=== PATIENT | male | born 1945 | race Hispanic/Latino ===

== ENCOUNTER 2018-05-08 07:50 | Inpatient (IN) | payer MEDICARE ==
--- NOTE | 2018-05-05 14:30 | Diagnostic Imaging Report ---
EXAM: XR CHEST 2 VIEWS DATE: 05/05/2018 1:56 PM INDICATION: Preoperative. Renal mass. COMPARISON: None FINDINGS: Lines and Tubes: None Heart and Mediastinum: No acute cardiomediastinal findings. Lungs and Pleura: Nodular densities overlie the right midlung. Bones and Soft Tissues: No acute findings. IMPRESSION: 1. Nodular densities right midlung. Given history of renal mass, dedicated CT chest recommended. Signed by: Dr. Jaguar Lopez MD on 05/05/2018 2:27 PM
[2018-05-07 15:51] LABS: BASOPHILS % 0.2 % (0.0-1.0); EOSINOPHILS # (AUTO) 0.1 (0.0-0.4); EOSINOPHILS % 1.3 % (0.0-6.0); HEMATOCRIT 37.6 % (38.2-49.6); HEMOGLOBIN 12.6 g/dL (14.0-18.0); LYMPHOCYTES # (AUTO) 0.8 (1.0-3.2); LYMPHOCYTES % 14.2 % (18.0-39.1); MEAN CORPUSCULAR HEMOGLOBIN 27.1 pg (28-32); MEAN CORPUSCULAR HGB CONC 33.5 g/dL (31-35); MEAN CORPUSCULAR VOLUME 80.9 fL (81-99); MONOCYTES # (AUTO) 0.4 (0.2-0.8); MONOCYTES % 8.1 % (4.4-11.3); NEUTROPHILS # (AUTO) 4.1 (2.1-6.9); PLATELET COUNT 246 x10e3/uL (140-360); RED BLOOD COUNT 4.65 x10e6/uL (4.3-5.7); RED CELL DISTRIBUTION WIDTH 20.8 % (11.7-14.4)
[2018-05-07 16:11] LABS: ANION GAP 13.7 mmol/L (8-16); BLOOD UREA NITROGEN 18 mg/dL (7-26); BUN/CREATININE RATIO 21 (6-25); CALCIUM 9.3 mg/dL (8.4-10.2); CARBON DIOXIDE 27 mmol/L (22-29); CHLORIDE 97 mmol/L (98-107); CREATININE, SERUM 0.84 mg/dL (0.72-1.25); EST GLOMERULAR FILTRATION RATE > 60 ML/MIN (60-); GLUCOSE 331 mg/dL (74-118); POTASSIUM 3.7 mmol/L (3.5-5.1); SODIUM 134 mmol/L (136-145)
[2018-05-08] VITALS (32 sets, daily range): BP systolic 110–148; BP diastolic 63–88
[~2018-05-08] VITALS: Ht 162.6 cm; Wt 69.9 kg
[2018-05-08] MEDS: DEXTROSE 5%/LACTATED RINGERS 1,000 ML IV SCH ×2 (05:00→14:17)
[~2018-05-08 07:50] MED LIST: AMLODIPINE BESYL5 MG PO; FERROUS SULFAT324 MG PO; FINASTERIDE5 MG PO; LEVOTHYROXINE88 MCG PO; LISINOPRIL-HCT1 EAC1 PO; METFORMIN HCL500 MG PO; PRAVASTATIN SOD40 MG PO; RANITIDINE HCL300 MG PO; TAMSULOSIN HCL0.4 MG PO
--- OUTSIDE RECORDS SUMMARY | 2018-05-08 07:57 | XMS REPORT ---
Author Author [facility] Address Unknown Phone Unavailable Care Team Providers Care City Supervisor Name Role Phone Zac SU Unavailable Unavailable Problems This patient has no known problems. Allergies, Adverse Reactions, Alerts This patient has no known allergies or adverse reactions. Medications This patient has no known medications. Results Test Description Test Time Test Comments Text Results Atomic Results Result Comments CHEST 2 VIEWS 2018-05-05 14:26:00 [place] [address] Patient Name: SHARIF BRAND MR #: [id number] : 1945 Age/Sex: 73/M Req #: [id number] [facility] Physician: Ordered by: GUILHERME SU MD Report #: [id number] Location: OR Room/Bed: Procedure: [id number] DX/CHEST 2 VIEWS Exam Date: 05/05/18 Exam Time: 1410 REPORT STATUS: Signed EXAM: XR CHEST 2 VIEWS DATE: 05/05/2018 1:56 PM IND ICATION: Preoperative. Renal mass. COMPARISON: None FINDINGS: Lines and Tubes: None Heart and Mediastinum: No acute cardiomediastinal findings. Lungs and Pleura: Nodular densities overlie the right midlung. Bones and Soft Tissues: No acute findings. IMPRESSION: 1. Nodular densities right midlung. Given history of renal mass, dedicated CT chest recommended. Signed by: Dr. Jaguar Mejía MD on 05/05/2018 2:27 PM Dictated By: JAGUAR MEJÍA MD 26 Transcribed By: PAUL on 05/05/181426 COPY TO: GUILHERME SU MD
[2018-05-08] MEDS ORDERED: CEFTRIAXONE SOD 1 GM VIAL ONE (08:19)
[2018-05-08] MEDS ORDERED: MANNITOL 25% 12.5GM/50ML 0 ML ONE (09:29)
[2018-05-08] MEDS ORDERED: HEPARIN SOD/SOD CHLORIDE 1,000 ML ONE (09:31)
[2018-05-08] MEDS ORDERED: MORPHINE SULFATE 1 MG/ML 30ML PCA ONE (12:00)
[2018-05-08] MEDS: FERROUS SULFATE 325 MG TAB PO SCH ×2 (14:17→21:00)
[2018-05-08] MEDS ORDERED: EPHEDRINE SULFATE INJ 50 MG/10 ML SYR ONE (14:28)
[2018-05-08] MEDS ORDERED: SEVOFLURANE INHAL SOLN 250 ML PEN BTL ONE (14:28)
[2018-05-08] MEDS ORDERED: LIDOCAINE HCL 2% LOCAL INJ 5 ML SDV VIAL INJ ONE (14:28)
[2018-05-08] MEDS ORDERED: NEOSTIGMINE 5 MG/5ML SYR ONE (14:28)
[2018-05-08] MEDS ORDERED: DEXAMETHASONE SOD PHOS INJ 4 MG/ML VIAL ONE (14:28)
[2018-05-08] MEDS ORDERED: ROCURONIUM BROMIDE 10 MG/ML 5ML VIAL ONE (14:28)
[2018-05-08] MEDS ORDERED: ONDANSETRON HCL INJ 2 MG/ML VIAL ONE (14:28)
[2018-05-08] MEDS ORDERED: ACETAMINOPHEN 1000 MG/100 ML IV ONE (14:28)
[2018-05-08] MEDS ORDERED: PROPOFOL IV EMULSION 10 MG/ML 20 ML VIAL ONE (14:28)
[2018-05-08] MEDS: TAMSULOSIN HCL 0.4 MG CAP PO SCH (17:29)
[2018-05-08] MEDS ORDERED: KETAMINE HCL INJ 50 MG/ML 10 ML VIAL ONE (19:10)
[2018-05-08] MEDS ORDERED: FENTANYL CITRATE/PF 100MCG/2 ML INJ ONE (19:10)
[2018-05-08] MEDS ORDERED: MORPHINE SULFATE INJ 10 MG/ML ONE (19:10)
[2018-05-08] MEDS ORDERED: NON-FORMULARY MEDICATION (Ranitidine Hcl 300 MG) PO SCH (21:00)
[2018-05-08] MEDS: AMLODIPINE BESYLATE 5 MG TAB PO SCH (21:00)
[2018-05-08] MEDS ORDERED: PRAVASTATIN 20 MG TAB PO SCH (21:00)
[2018-05-08] MEDS: FAMOTIDINE 20 MG TAB PO SCH (21:00)
[2018-05-09] VITALS (24 sets, daily range): BP systolic 116–132; BP diastolic 63–113
[2018-05-09 05:04] LABS: HEMATOCRIT 37.5 % (38.2-49.6); HEMOGLOBIN 12.5 g/dL (14.0-18.0)
[2018-05-09] MEDS: DEXTROSE 5%/LACTATED RINGERS 1,000 ML IV SCH ×3 (05:30→20:35)
[2018-05-09 05:33] LABS: ANION GAP 14.2 mmol/L (8-16); CALCIUM 8.7 mg/dL (8.4-10.2); CREATININE, SERUM 1.23 mg/dL (0.72-1.25); POTASSIUM 4.2 mmol/L (3.5-5.1)
[2018-05-09] MEDS: LEVOTHYROXINE SODIUM 88 MCG TAB PO SCH (06:15)
[2018-05-09] MEDS ORDERED: NON-FORMULARY MEDICATION (Pravastatin Sodium 40 MG) PO SCH (09:00)
[2018-05-09] MEDS ORDERED: LEVOTHYROXINE SODIUM 88 MCG TAB PO SCH (09:00)
[2018-05-09] MEDS: LISINOPRIL 20 MG TAB PO SCH (09:30)
[2018-05-09] MEDS: HYDROCHLOROTHIAZIDE 25 MG TAB PO SCH (10:01)
[2018-05-09] MEDS: FERROUS SULFATE 325 MG TAB PO SCH ×3 (10:02→20:34)
[2018-05-09] MEDS: METFORMIN HCL 500 MG TAB PO SCH (10:02)
[2018-05-09] MEDS: TAMSULOSIN HCL 0.4 MG CAP PO SCH ×2 (10:02→16:20)
[2018-05-09] MEDS: FINASTERIDE 5 MG TAB PO SCH (10:03)
[2018-05-09] MEDS: ACETAMINOPHEN 325 MG TAB PO PRN (12:40)
[2018-05-09] MEDS: DOCUSATE SODIUM 100 MG CAP PO PRN (12:40)
[2018-05-09] MEDS: SIMVASTATIN 20 MG TAB PO SCH (20:34)
[2018-05-09] MEDS: AMLODIPINE BESYLATE 5 MG TAB PO SCH (20:34)
[2018-05-09] MEDS: FAMOTIDINE 20 MG TAB PO SCH (20:34)
[2018-05-09] MEDS: ONDANSETRON HCL INJ 2 MG/ML VIAL IV PRN (22:11)
[2018-05-10] VITALS (24 sets, daily range): BP systolic 80–135; BP diastolic 27–94
[2018-05-10] MEDS: DEXTROSE 5%/LACTATED RINGERS 1,000 ML IV SCH ×2 (02:30→05:30)
[2018-05-10] MEDS: LEVOTHYROXINE SODIUM 88 MCG TAB PO SCH (05:14)
[2018-05-10] MEDS: DOCUSATE SODIUM 100 MG CAP PO PRN (07:55)
[2018-05-10] MEDS: ACETAMINOPHEN 325 MG TAB PO PRN ×2 (07:55→14:23)
[2018-05-10] MEDS: FERROUS SULFATE 325 MG TAB PO SCH ×3 (08:49→21:20)
[2018-05-10] MEDS: METFORMIN HCL 500 MG TAB PO SCH (08:49)
[2018-05-10] MEDS: HYDROCHLOROTHIAZIDE 25 MG TAB PO SCH (08:49)
[2018-05-10] MEDS: TAMSULOSIN HCL 0.4 MG CAP PO SCH ×2 (08:49→17:40)
[2018-05-10] MEDS: LISINOPRIL 20 MG TAB PO SCH (08:50)
[2018-05-10] MEDS: FINASTERIDE 5 MG TAB PO SCH (08:50)
[2018-05-10] MEDS ORDERED: ACETAMINOPHEN/CODEINE 300MG - 30MG TAB PO PRN (12:45)
[2018-05-10] MEDS ORDERED: SODIUM CHLORIDE FLUSH 10 ML SYR INJ PRN (12:45)
[2018-05-10] MEDS: FAMOTIDINE 20 MG TAB PO SCH (19:52)
[2018-05-10] MEDS: SIMETHICONE 80 MG CHEW PO PRN (19:52)
[2018-05-10] MEDS: SIMVASTATIN 20 MG TAB PO SCH (21:14)
[2018-05-10] MEDS: AMLODIPINE BESYLATE 5 MG TAB PO SCH (21:14)
[2018-05-10] MEDS ORDERED: SODIUM CHLORIDE 0.9% 1000ML 1,000 ML ONE (21:47)
[2018-05-10] MEDS ORDERED: DILTIAZEM HCL VIAL 5 ML ONE (21:50)
[2018-05-10] MEDS ORDERED: AMIODARONE 900MG 500 ML IV ONE (22:01)
[2018-05-10] MEDS ORDERED: AMIODARONE HCL 100 ML IV ONE (22:01)
[2018-05-10] MEDS ORDERED: METOPROLOL TARTRATE INJ 1 MG/ML VIAL ONE (22:12)
[2018-05-10 22:36] LABS: BASOPHILS % 0.1 % (0.0-1.0); EOSINOPHILS % 0.2 % (0.0-6.0); HEMATOCRIT 38.6 % (38.2-49.6); LYMPHOCYTES # (AUTO) 0.5 (1.0-3.2); LYMPHOCYTES % 5.2 % (18.0-39.1); MEAN CORPUSCULAR HEMOGLOBIN 27.1 pg (28-32); MEAN CORPUSCULAR HGB CONC 33.7 g/dL (31-35); MEAN CORPUSCULAR VOLUME 80.6 fL (81-99); MONOCYTES # (AUTO) 0.6 (0.2-0.8); MONOCYTES % 5.6 % (4.4-11.3); NEUTROPHILS # (AUTO) 8.8 (2.1-6.9); NEUTROPHILS % 88.4 % (38.7-80.0); PLATELET COUNT 239 x10e3/uL (140-360); RED BLOOD COUNT 4.79 x10e6/uL (4.3-5.7)
[2018-05-10 22:41] LABS: INR 1.12; PROTHROMBIN TIME 15.4 seconds (11.9-14.5)
[2018-05-10 22:48] LABS: ANION GAP 16.1 mmol/L (8-16); CALCIUM 8.8 mg/dL (8.4-10.2); CREATININE, SERUM 1.19 mg/dL (0.72-1.25); MAGNESIUM 1.7 MG/DL (1.3-2.1); POTASSIUM 4.1 mmol/L (3.5-5.1)
[2018-05-10 23:09] LABS: THYROID STIMULATING HORMONE 1.21 uIU/mL (0.350-4.940)
[2018-05-10] MEDS ORDERED: DIGOXIN INJ 0.25 MG/ML 2 ML AMP IV ONE (23:15)
[2018-05-11] VITALS (69 sets, daily range): BP systolic 100–138; BP diastolic 57–96
[2018-05-11 00:09] LABS: CREATINE KINASE MB 2.5 ng/mL (0-5.0)
[2018-05-11] MEDS: ONDANSETRON HCL INJ 2 MG/ML VIAL IV PRN ×2 (02:28→14:26)
[2018-05-11] MEDS: LEVOTHYROXINE SODIUM 88 MCG TAB PO SCH (05:50)
[2018-05-11 05:52] LABS: CREATINE KINASE MB 3.4 ng/mL (0-5.0)
[2018-05-11 07:29] LABS: ALBUMIN 2.6 g/dL (3.5-5.0); ALBUMIN/GLOBULIN RATIO 0.8 (0.8-2.0); ANION GAP 14.8 mmol/L (8-16); CALCIUM 8.9 mg/dL (8.4-10.2); CREATININE, SERUM 1.23 mg/dL (0.72-1.25); MAGNESIUM 1.6 MG/DL (1.3-2.1); POTASSIUM 3.8 mmol/L (3.5-5.1)
[2018-05-11 07:43] LABS: HEMATOCRIT 37.2 % (38.2-49.6); HEMOGLOBIN 12.2 g/dL (14.0-18.0); LYMPHOCYTES # (AUTO) 0.2 (1.0-3.2); LYMPHOCYTES % 2.9 % (18.0-39.1); MEAN CORPUSCULAR HEMOGLOBIN 26.9 pg (28-32); MEAN CORPUSCULAR HGB CONC 32.8 g/dL (31-35); MEAN CORPUSCULAR VOLUME 81.9 fL (81-99); MONOCYTES # (AUTO) 0.4 (0.2-0.8); MONOCYTES % 6.5 % (4.4-11.3); NEUTROPHILS # (AUTO) 5.5 (2.1-6.9); NEUTROPHILS % 90.3 % (38.7-80.0); PLATELET COUNT 202 x10e3/uL (140-360); RED BLOOD COUNT 4.54 x10e6/uL (4.3-5.7); RED CELL DISTRIBUTION WIDTH 18.7 % (11.7-14.4)
[2018-05-11] MEDS: METFORMIN HCL 500 MG TAB PO SCH (08:36)
[2018-05-11] MEDS: FERROUS SULFATE 325 MG TAB PO SCH (08:36)
[2018-05-11] MEDS: FINASTERIDE 5 MG TAB PO SCH (08:36)
[2018-05-11] MEDS: TAMSULOSIN HCL 0.4 MG CAP PO SCH ×2 (08:36→17:00)
[2018-05-11] MEDS: HYDROCHLOROTHIAZIDE 25 MG TAB PO SCH (08:36)
[2018-05-11] MEDS: LISINOPRIL 20 MG TAB PO SCH (08:36)
[2018-05-11] MEDS ORDERED: DEXTROSE 50% SYRINGE 50 ML IV PRN (09:30)
[2018-05-11 11:06] LABS: CREATINE KINASE MB 2.8 ng/mL (0-5.0)
[2018-05-11] MEDS: INSULIN REGULAR, HUMAN 100 UNIT/1 ML 3ML VIAL SQ SCH ×3 (11:30→20:35)
[2018-05-11 12:59] LABS: BAND NEUTROPHILS % (MANUAL) 5 %; LYMPHOCYTES % (MANUAL) 6 % (19-48); MONOCYTES % (MANUAL) 6 % (3.4-9.0); NEUTROPHILS % (MANUAL) 83 % (40-74)
[2018-05-11 13:00] LABS: PLATELET ESTIMATE ADEQUATE; PLATELET MORPHOLOGY COMMENT NORMAL; RBC MORPHOLOGY COMMENT NORMAL
[2018-05-11] MEDS: SIMETHICONE 80 MG CHEW PO PRN ×2 (14:26→20:31)
[2018-05-11] MEDS: ACETAMINOPHEN 325 MG TAB PO PRN ×2 (14:26→20:31)
[2018-05-11] MEDS ORDERED: AMIODARONE 900MG 500 ML IV SCH (15:30)
[2018-05-11] MEDS: DOCUSATE SODIUM 100 MG CAP PO SCH (17:00)
[2018-05-11] MEDS: METOPROLOL TARTRATE 25 MG TAB PO SCH (17:00)
[2018-05-11] MEDS: SIMVASTATIN 20 MG TAB PO SCH (20:31)
[2018-05-11] MEDS: FAMOTIDINE 20 MG TAB PO SCH (20:31)
--- NOTE | 2018-05-11 20:53 | Consultation ---
DATE OF CONSULTATION: May 11, 2018 CARDIOLOGY CONSULTATION REASON FOR CONSULTATION: Atrial fibrillation. HISTORY OF PRESENT ILLNESS: Mr. Tse is a 73-year-old gentleman with past medical history of hypertension, type 2 diabetes, hypothyroidism, hypercholesterolemia, BPH, COPD, former smoker who essentially had a left renal mass that was noted after workup of hematuria. He according to the son, who is at bedside, went to a cancer doctor, who staged him and referred him to urologist. He underwent left radical nephrectomy on May 08, 2018 from inferior approach and had unremarkable operative course. As he has been slowly progressing from his operation, patient had new onset rapid AFib with rapid ventricular response and rapid response was called last night. He denied any chest pain or discomfort. Patient reports having gotten up and had some mild discomfort in his abdomen and reports overall his appetite has not been very good and feels mildly constipated. After starting on IV amiodarone drip, the patient has converted back into normal sinus rhythm and more or less is reasonably good at the present time. Serial cardiac enzymes were checked with troponins and have been negative x3 ruling out for heart attack and EKG confirmed the presence of atrial fibrillation with rapid ventricular response, but no ischemia. We had a long discussion with the patient and the family at bedside. PAST MEDICAL HISTORY 1. Hypertension, essential. 2. BPH. 3. Type 2 diabetes. 4. Hypercholesterolemia. 5. Hypothyroidism. PAST SURGICAL HISTORY 1. History of cholecystectomy. 2. History of left ear surgery. 3. History of left radical nephrectomy this admission due to the presence of suspicion for cancer with renal mass and has had previous workup per family. SOCIAL HISTORY: He is a former smoker, quit 20 years ago. Denies alcohol or illicit drug use. FAMILY HISTORY: Mother and father in their 90s, really unknown history on them. Denies any family history of coronary artery disease. ALLERGIES: NO KNOWN DRUG ALLERGIES. HOME MEDICATIONS: Include iron sulfate daily, finasteride 5 mg daily, tamsulosin 4 mg b.i.d., Norvasc 5 mg daily, pravastatin 40 mg daily, metformin 1000 mg b.i.d., Synthroid 88 mcg daily, Zantac 300 mg daily, lisinopril/HCTZ 20/12.5 mg daily. REVIEW OF SYSTEMS GENERAL: Denies any current fevers or chills. HEENT: No headaches, visual complaints, sore throat, stuffy nose. RESPIRATORY: Denies any pleuritic chest pain or shortness of breath. CARDIOVASCULAR: Denies any subjective palpitations, chest pain or discomfort, orthopnea, or PND. GI: Positive for constipation, decreased appetite, and just mild abdominal discomfort appropriate for postop. : He is making urine with yellowish urine. HEMATOLOGY: No easy bleeding or bruising. MUSCULOSKELETAL: Denies any muscle aches or pains or any leg swelling. ENDOCRINE: Denies any heat or cold intolerance. NEUROLOGIC: Denies any focal weakness, numbness, tingling, seizures, headaches, TIA, or stroke. Remainder of review of systems negative, otherwise mentioned. PHYSICAL EXAMINATION VITAL SIGNS: Height of 64 inches, weight of 154 pounds, BMI 26.5. Temperature of 99.2, pulse of 109, respiratory rate of 17, blood pressure 124/70, and O2 sat 96% on 2 liters nasal cannula. GENERAL: This is a well-nourished, well-developed gentleman, who is currently in no apparent distress. HEENT: Pupils are equally round and reactive to light. Extraocular movements are intact. Oropharynx is clear. NECK: No elevation of jugular venous pulsation. No carotid bruits. CARDIOVASCULAR: Tachycardic. Normal S1, S2. Soft 2/6 systolic murmur at the left lower sternal border. LUNGS: Relatively clear to auscultation bilaterally. ABDOMEN: Soft with hypoactive bowel sounds. There is a left 8-cm incision across the left anterior to the flank region that is horizontal with britt. EXTREMITIES: Warm with 1 to 2+ radial pulses, 1+ femoral pulses, and 1+ pedal pulses. NEUROLOGIC: Cranial nerves II through XII are seemingly intact. Strength seemingly preserved. LABS: White count of 6.1, hemoglobin 12.2, hematocrit 37.2, and platelets of 202. Sodium 129, potassium 3.8, chloride 97, bicarb 21, BUN 18, creatinine 1.2, glucose of 346, calcium of 8.9, AST 34, ALT 18, alkaline phosphatase 56, total bilirubin 5.9, albumin 2.6. Troponin went from 0.003 to 0.017 to 0.015. INR is 1.12. Chest x-ray from May 05 reveals nodular density on the right mid lung. EKG revealed atrial fibrillation with rapid ventricular response. Telemetry currently reveals sinus tachycardia. Pathology is pending. DIAGNOSES 1. Postoperative atrial fibrillation. 2. Hypertension, essential. 3. Chronic obstructive pulmonary disease, former smoker. 4. Left renal mass, most likely left renal cell carcinoma. 5. Abnormal chest x-rays. Per patient and family, has had previous preoperative staging with hematology/oncology as well as urologist. We will clarify with them. 6. Former smoker. 7. Hypercholesterolemia. 8. Type 2 diabetes. 9. Benign prostatic hypertrophy. 10. Clinical suspicion of current ileus. PLAN/RECOMMENDATIONS 1. From a cardiovascular standpoint, currently, he is with sinus tachycardia and is that of atrial fibrillation. 2. We will go ahead and continue amiodarone drip for rhythm control strategy for another bag. 3. Echocardiogram reviewed showing preserved EF 65% to 70% with normal wall motion. 4. TSH was 1.2 on May 10, showing no hyperthyroidism. 5. We will check lower extremity venous duplex to evaluation for any occult DVT. After all he has postop, but is on appropriate prophylaxis at the time being with SCDs. 6. We will start short-acting beta iris therapy for added rate control. 7. Perhaps patient needs a little bit of pain medicine as pain may be contributing to his tachycardic state. 8. We will continue to follow this patient. Thank you for this referral. Job#: [id number] ANA
[2018-05-11] MEDS ORDERED: AMLODIPINE BESYLATE 5 MG TAB PO SCH (21:00)
[2018-05-12] VITALS (29 sets, daily range): BP systolic 95–129; BP diastolic 52–80
[2018-05-12] MEDS: METOPROLOL TARTRATE 25 MG TAB PO SCH ×3 (00:21→17:11)
[2018-05-12] MEDS: LEVOTHYROXINE SODIUM 88 MCG TAB PO SCH (05:33)
--- NOTE | 2018-05-12 06:37 | Diagnostic Imaging Report ---
EXAM: CHEST SINGLE (PORTABLE), AP 1 view INDICATION: Postop left renal mass COMPARISON: PA and lateral view of the chest June 04, 2018 FINDINGS: LINES/TUBES: None LUNGS: Left lower lobe atelectasis. Stable nodular densities projected over the right chest. PLEURA: Trace left pleural effusion. HEART AND MEDIASTINUM: Normal size and contour. BONES AND SOFT TISSUES: Surgical clips in the upper abdomen bilaterally. IMPRESSION: Left lower lobe atelectasis and trace left pleural effusion. Signed by: Dr. Angelique Young M.D. on 05/12/2018 6:34 AM
[2018-05-12] MEDS: INSULIN REGULAR, HUMAN 100 UNIT/1 ML 3ML VIAL SQ SCH ×4 (07:59→21:25)
[2018-05-12] MEDS: METFORMIN HCL 500 MG TAB PO SCH (07:59)
[2018-05-12] MEDS: TAMSULOSIN HCL 0.4 MG CAP PO SCH ×2 (07:59→17:11)
[2018-05-12] MEDS: DOCUSATE SODIUM 100 MG CAP PO SCH ×2 (07:59→17:00)
[2018-05-12] MEDS: FINASTERIDE 5 MG TAB PO SCH (07:59)
[2018-05-12] MEDS: HYDROCHLOROTHIAZIDE 25 MG TAB PO SCH (09:00)
[2018-05-12] MEDS: LISINOPRIL 20 MG TAB PO SCH (09:00)
[2018-05-12] MEDS: FAMOTIDINE 20 MG TAB PO SCH (21:23)
[2018-05-12] MEDS: SIMVASTATIN 20 MG TAB PO SCH (21:24)
[2018-05-13] VITALS (9 sets, daily range): BP systolic 107–129; BP diastolic 62–77
[2018-05-13] MEDS: LEVOTHYROXINE SODIUM 88 MCG TAB PO SCH (06:21)
[2018-05-13 06:22] LABS: BASOPHILS % 0.2 % (0.0-1.0); EOSINOPHILS # (AUTO) 0.1 (0.0-0.4); EOSINOPHILS % 1.5 % (0.0-6.0); HEMOGLOBIN 11.4 g/dL (14.0-18.0); LYMPHOCYTES # (AUTO) 0.3 (1.0-3.2); LYMPHOCYTES % 7.1 % (18.0-39.1); MEAN CORPUSCULAR HGB CONC 33.5 g/dL (31-35); MEAN CORPUSCULAR VOLUME 80.6 fL (81-99); MONOCYTES # (AUTO) 0.5 (0.2-0.8); MONOCYTES % 11.3 % (4.4-11.3); NEUTROPHILS # (AUTO) 3.7 (2.1-6.9); PLATELET COUNT 265 x10e3/uL (140-360); RED BLOOD COUNT 4.22 x10e6/uL (4.3-5.7); RED CELL DISTRIBUTION WIDTH 18.1 % (11.7-14.4)
[2018-05-13 06:41] LABS: ALANINE AMINOTRANSFERASE 23 IU/L (0-55); ALBUMIN 2.4 g/dL (3.5-5.0); ALBUMIN/GLOBULIN RATIO 0.7 (0.8-2.0); ALKALINE PHOSPHATASE 48 IU/L (40-150); ANION GAP 15.2 mmol/L (8-16); BLOOD UREA NITROGEN 25 mg/dL (7-26); BUN/CREATININE RATIO 24 (6-25); CALCIUM 8.3 mg/dL (8.4-10.2); CARBON DIOXIDE 25 mmol/L (22-29); CHLORIDE 98 mmol/L (98-107); CREATININE, SERUM 1.06 mg/dL (0.72-1.25); EST GLOMERULAR FILTRATION RATE > 60 ML/MIN (60-); GLUCOSE 135 mg/dL (74-118); POTASSIUM 3.2 mmol/L (3.5-5.1); SODIUM 135 mmol/L (136-145)
[2018-05-13] MEDS: INSULIN REGULAR, HUMAN 100 UNIT/1 ML 3ML VIAL SQ SCH ×2 (07:30→11:30)
[2018-05-13] MEDS: METFORMIN HCL 500 MG TAB PO SCH (08:00)
[2018-05-13] MEDS: FINASTERIDE 5 MG TAB PO SCH (09:00)
[2018-05-13] MEDS: TAMSULOSIN HCL 0.4 MG CAP PO SCH (09:00)
[2018-05-13] MEDS: LISINOPRIL 20 MG TAB PO SCH (09:00)
[2018-05-13] MEDS: METOPROLOL TARTRATE 25 MG TAB PO SCH (09:00)
[2018-05-13] MEDS: DOCUSATE SODIUM 100 MG CAP PO SCH (09:00)
[2018-05-13] MEDS: HYDROCHLOROTHIAZIDE 25 MG TAB PO SCH (09:00)
[2018-05-13] MEDS ORDERED: POTASSIUM CHLORIDE 20 MEQ TAB CR PO STA (11:25)
[2018-05-13] MEDS: POTASSIUM CHLORIDE 20 MEQ TAB CR PO SCH ×2 (12:00→16:38)
[2018-05-13] MEDS ORDERED: POTASSIUM CHLORIDE 20 MEQ TAB CR PO ONE (16:45)
--- NOTE | 2018-06-04 16:50 | Operative Report ---
DATE OF PROCEDURE: May 08, 2018 PREOPERATIVE DIAGNOSIS: Left renal mass. POSTOPERATIVE DIAGNOSIS: Left renal cell carcinoma. OPERATIVE PROCEDURE PERFORMED: Left radical nephrectomy. ANESTHESIA: General anesthesia. ESTIMATED BLOOD LOSS: 400 mL. INDICATIONS: Mr. Ant Tse was recently found to have anemia and a CT scan was done which revealed a 4 cm mass in the left hilum. He now presents for definitive surgical management of this problem. PROCEDURE IN DETAIL: The patient was brought into the operating room and placed in the supine position and, after the administration of general anesthesia, was prepped and draped in the usual sterile fashion. A subcostal incision was made sharply and dissection was carried out through the layers of the abdomen. The horizontal incision was made across the rectus fascia, and the rectus muscle was split using the electrocautery device. The peritoneum was entered. An exploration was performed. The liver was smooth and without nodules. There were no stones seen in the gallbladder. The hepatic vein was patent there was no palpable retroperitoneal adenopathy. The left kidney had a mass, approximately 4 cm noted in the region of the hilum. The bladder was palpable and in a normal position with a Candelario balloon in place. The white line of Toldt was taken down on the left side and the bowel reflected medially. The posterior envelope of Gerota's fascia was cut and cleanly dissected off from the posterior musculature, and the connections between the kidney and the spleen were taken down sharply, clipped, and cut. Inferiorly, the ureter and gonadal vein were encountered and these were individually clipped and cut. The ureteral remnant was tied with a silk and left in situ. The vena cava was encountered and proceeding superiorly the lymphatics were dissected, clipped and cut. While marching up the anterior surface of the cava, the left renal vein was encountered. The left renal artery was palpable just superior and posterior to this. The endovascular stapling was used to ligate and cut the renal hilum. The residual attachments of the thick kidney to the adrenal gland and vascular attachments to the kidney were ultimately ligated and cut. The left adrenal was left in situ. The specimen was then removed and sent to pathology for microscopic analysis. The hemostasis was obtained using the electrocautery device. The hilum was examined and there was no obvious bleeding noted. The abdomen was copiously irrigated with sterile water, and the bowel contents appeared normally positioned. The abdomen was then closed in layers using a running Vicryl suture. The skin was approximated and closed with britt. The wound was then cleaned and dried and covered with a large sterile dressing. The anesthesia was reversed, and the patient was transferred to a bed and taken to the postanesthesia care unit in good condition. Job#: [id number] EV MTDD
== END 2018-05-13 17:25 | disposition home health service (06) | DRG 657 ==
LOC: OR 07:50 → PACU V 12:14 → IMCU 13:17 → ICU 05-10 22:23 → MED/SURG2 05-13 03:57
PROVIDERS: ADMIT Urology; ATTEND Urology
PROC: 0GT20ZZ Resection of Left Adrenal Gland, Open Approach (ICD-10-PCS; 2018-05-08)
PROC: 0TT70ZZ Resection of Left Ureter, Open Approach (ICD-10-PCS; 2018-05-08)
PROC: 30233N1 Transfusion of Nonautologous Red Blood Cells into Peripheral Vein, Percutaneous Approach (ICD-10-PCS; 2018-05-08)
PROC: 0TT10ZZ Resection of Left Kidney, Open Approach (ICD-10-PCS; principal; 2018-05-08 10:00)
DX: C64.2 Malignant neoplasm of left kidney, except renal pelvis (principal); I97.191 Other postprocedural cardiac functional disturbances following other surgery; K56.7 Ileus, unspecified; I48.91 Unspecified atrial fibrillation; Z79.01 Long term (current) use of anticoagulants; N40.0 Benign prostatic hyperplasia without lower urinary tract symptoms; E11.9 Type 2 diabetes mellitus without complications; E03.9 Hypothyroidism, unspecified; E78.00 Pure hypercholesterolemia, unspecified; Z79.891 Long term (current) use of opiate analgesic; J44.9 Chronic obstructive pulmonary disease, unspecified
CPT/HCPCS: 36415; 71045; 71046; 80048; 80053; 82550; 82553; 82948; 83605; 83735; 84443; 84484; 85014; 85018; 85025; 85610; 85730; 86850; 86900; 86920; 87040; 88307; 88329; 93005; 93306; 93970; 96361; 96372; J0696; J1100; J1160; J2001; J2150; J2270; J2405; J7030; P9016

== ENCOUNTER 2018-07-17 08:13 | Inpatient (IN) | payer MEDICARE, OTHER ==
[~2018-07-17] VITALS: Ht 162.6 cm; Wt 65.3 kg
[2018-07-17 08:58] LABS: ALANINE AMINOTRANSFERASE 8 IU/L (0-55); ALBUMIN 3.5 g/dL (3.5-5.0); ALBUMIN/GLOBULIN RATIO 1.1 (0.8-2.0); ALKALINE PHOSPHATASE 63 IU/L (40-150); ANION GAP 13.7 mmol/L (8-16); BLOOD UREA NITROGEN 14 mg/dL (7-26); BUN/CREATININE RATIO 14 (6-25); CALCIUM 8.8 mg/dL (8.4-10.2); CARBON DIOXIDE 25 mmol/L (22-29); CHLORIDE 100 mmol/L (98-107); CREATININE, SERUM 0.97 mg/dL (0.72-1.25); EST GLOMERULAR FILTRATION RATE > 60 ML/MIN (60-); GLUCOSE 136 mg/dL (74-118); POTASSIUM 3.7 mmol/L (3.5-5.1); SODIUM 135 mmol/L (136-145)
[2018-07-17 09:24] LABS: BASOPHILS % 0.5 % (0.0-1.0); EOSINOPHILS # (AUTO) 0.1 (0.0-0.4); EOSINOPHILS % 1.8 % (0.0-6.0); HEMOGLOBIN 12.3 g/dL (14.0-18.0); LYMPHOCYTES # (AUTO) 0.8 (1.0-3.2); LYMPHOCYTES % 18.9 % (18.0-39.1); MEAN CORPUSCULAR HEMOGLOBIN 26.4 pg (28-32); MEAN CORPUSCULAR HGB CONC 32.4 g/dL (31-35); MEAN CORPUSCULAR VOLUME 81.5 fL (81-99); MONOCYTES # (AUTO) 0.5 (0.2-0.8); MONOCYTES % 10.1 % (4.4-11.3); NEUTROPHILS % 68.5 % (38.7-80.0); PLATELET COUNT 225 x10e3/uL (140-360); RED BLOOD COUNT 4.66 x10e6/uL (4.3-5.7); RED CELL DISTRIBUTION WIDTH 14.7 % (11.7-14.4)
[2018-07-17 09:44] LABS: BILIRUBIN,URINE NEGATIVE (NEGATIVE); CLARITY,URINE CLEAR (CLEAR); COLOR,URINE YELLOW (YELLOW); KETONES,URINE NEGATIVE (NEGATIVE); LEUKOCYTE ESTERASE ,URINE NEGATIVE (NEGATIVE); NITRITE,URINE NEGATIVE (NEGATIVE); PROTEIN,URINE DIPSTICK NEGATIVE (NEGATIVE); URINE UROBILINOGEN 0.2 mg/dL (0.2 - 1)
[2018-07-17 09:45] LABS: EPITHELIAL CELLS,URINE RARE /LPF; TRANSITIONAL EPI CELLS,URINE RARE
[2018-07-17] MEDS ORDERED: DIATRIZOATE MEGL/DIATRIZOA SOD 30 ML BTL PO ONE (09:56)
--- NOTE | 2018-07-17 12:17 | Diagnostic Imaging Report ---
EXAMINATION: CT o f the abdomen and pelvis with contrast. TECHNIQUE: Spiral CT images of the abdomen and pelvis were performed from the lung bases to the lesser trochanters after the intravenous administration of 100 cc Isovue-370 and the oral administration of Gastrografin. Coronal and sagittal reformatted images were obtained. COMPARISON: None. CLINICAL HISTORY:Groin and rectal pain, history of prostate biopsy on 04/24/2018 and left nephrectomy for renal cell carcinoma 05/08/2018 DISCUSSION: ABDOMEN/PELVIS: LOWER THORAX:Subsegmental atelectasis in the dependent portions of the lower lobes. Otherwise unremarkable. HEPATOBILIARY: Subcentimeter hypoattenuating foci scattered throughout the liver, too small to further characterize but likely represent small cysts. Trace intrahepatic biliary ductal dilatation status post cholecystectomy. SPLEEN: No splenomegaly. PANCREAS: No focal masses or ductal dilatation. ADRENALS: No adrenal nodules. KIDNEYS/URETERS: Postsurgical changes of left nephrectomy include multiple surgical clips in the renal fossa. Low-attenuation fluid collection in the surgical bed has no significant peripheral enhancement and measures approximately 8 cm transverse x 4.2 cm AP x 7.5 cm craniocaudal. Subcentimeter hypoattenuating lesion in the right kidney is too small to further characterize but likely to represent a small cyst. No right hydronephrosis or right renal mass lesion. PELVIC ORGANS/BLADDER: The urinary bladder is distended. The prostate is markedly enlarged, measuring 7.2 cm transverse x 6 cm AP x 7.3 cm craniocaudal. In the left paramedian aspect of the inferior prostate there is an ovoid hypoattenuating collection (15-20 Hounsfield units) measuring 2 cm oblique AP x 2.2 cm craniocaudal x 1.2 cm transverse. There is mass effect on the adjacent rectum. There is also a 2.9 cm round, lucent centered dystrophic calcification in the right mesorectum adjacent to a surgical clip. PERITONEUM/RETROPERITONEUM: Small amount of high attenuation fluid extending posterior laterally from the left side of the prostate, as seen on series 2 image 79. No pneumoperitoneum. LYMPH NODES: Single mesorectal lymph node adjacent to the sacrum seen on series 2 image 70. Bilateral common iliac chain lymph nodes are more prominent than expected, measuring 9 mm short axis seen on series 2 image 59 and image 60. No mesenteric lymphadenopathy. VESSELS: There is atherosclerotic calcification of the abdominal aorta, major branch vessels, and iliac arterial systems without aneurysmal dilatation. No active contrast extravasation or pseudoaneurysm. GI TRACT: The large bowel shows no evidence of distention or wall thickening. There are diverticula along the course of the descending and sigmoid colon without evidence of diverticulitis. The appendix is normal. No small bowel dilatation to suggest obstruction. BONES AND SOFT TISSUE: No osseous destructive lesions. No focal soft tissue abnormalities. IMPRESSION: Marked prostatomegaly with a 2.2 cm ovoid hypoattenuating collection in the left median lobe. This may represent an abscess in the setting of relatively recent prostate biopsy. Of note, the prostate exerts significant mass effect on the adjacent rectum. Bilateral common iliac chain lymph nodes are more prominent than expected though not enlarged by CT criteria. These may be reactive or metastatic and correlation with pathology of prostate biopsy is suggested. Small amount of high attenuation fluid in the left hemipelvis likely represents evolving postsurgical/postprocedural hemorrhage. No contrast extravasation. Postsurgical changes of left nephrectomy with a low-attenuation, nonenhancing collection in the surgical bed likely a postoperative seroma. Additional findings include atherosclerotic vascular disease and large bowel diverticulosis without findings of diverticulitis. Signed by: Dr. Noah Schmidt M.D. on 07/17/2018 12:14 PM
--- NOTE | 2018-07-17 14:20 | NUR ---
PATIENT AWAKE AND ALERT SITTING IN BED TALKING TO FAMILY AT BEDSIDE. RESP EVEN AND UNLABORED. SKIN WARM AND DRY. NO SIGNS OF ACUTE DISTRESS NOTED AT THIS TIME. DENIES ANY C/O AT THIS TIME. EDUCATED PATIENT AND FAMILY ON THE CURRENT PLAN OF CARE, VERBALIZED UNDERSTANDING.
[2018-07-17] MEDS: SODIUM CHLORIDE 0.9% 1000ML 1,000 ML IV SCH (14:40)
[2018-07-17] MEDS ORDERED: SODIUM CHLORIDE 0.9% 50ML 50 ML ONE (16:38)
[2018-07-17] MEDS ORDERED: IOPAMIDOL 370 MG/ML 200 ML INFUS..BTL INJ ONE (16:38)
[2018-07-17 17:00] VITALS: BP 169/91
--- NOTE | 2018-07-17 17:00 | NUR ---
Pt admitted to floor at this time, admitted to for prostate abscess. Pt is aox4 and able to verbalize needs. Pt denies any pain at this time. 0 s/s of acute distress noted.
[2018-07-17 17:41] VITALS: BP 169/91
[2018-07-17] MEDS ORDERED: ACETAMINOPHEN 325 MG TAB PO PRN (18:15)
[2018-07-17] MEDS: LEVOFLOXACIN 500MG/D5W 100ML 100 ML IV SCH (18:52)
--- NOTE | 2018-07-17 19:15 | NUR ---
COMPLETED ROUNDS WITH MORNING NURSE. PT ALERT TO NAME, PLACE, AND TIME. DENIES PAIN AT THIS TIME. RESP EVEN AND UNLABORED. CALL SCHERER WITHIN REACH. WILL CONTINUE TO MONITOR.
--- NOTE | 2018-07-17 19:15 | NUR ---
ROUNDS COMPLETED WITH MORNING NURSE. PT ALERT TO NAME. DISORIENTED TO PLACE, TIME, AND SITUATION. RESP EVEN AND UNLABORED. C/O RIGHT LEG PAIN UPON MOVEMENT. ORIENTED TO CALL SCHERER. BED LOW AND LOCKED POSITION. BED ALARM ON. WILL CONTINUE TO MONITOR. Addendum: 07/17/18 at 2217 by Shelia Rivera RN WRONG CHART
[2018-07-17 20:00] VITALS: BP 164/79
--- NOTE | 2018-07-17 20:06 | NUR ---
SPOKE WITH DR. GRAY REGARDING PTs RIGHT LEG PAIN. ORDERED TYLENOL 650MG PO EVERY 8 HOURS PRN PAIN. Addendum: 07/17/18 at 2217 by Shelia Rivera RN WRONG CHART
--- NOTE | 2018-07-17 20:19 | History and Physical ---
HISTORY OF PRESENT ILLNESS: A 73-year-old male with past medical history positive for left nephrectomy, hypertension, diabetes, status post recent biopsies of the prostate. He is still complaining of rectal pain. He came to the emergency room. CT of the abdomen and pelvis was done and he was found to have an abscess on the prostate. Started IV antibiotic and he was transferred to the hospital. REVIEW OF SYSTEMS CARDIOVASCULAR: No chest pain or palpitation. RESPIRATORY: No shortness of breath. No cough. GASTROINTESTINAL: No nausea, no vomiting, no diarrhea. GENITOURINARY: No urinary frequency. No dysuria. ALLERGIES: HE IS NOT ALLERGIC TO ANY MEDICATIONS. SOCIAL HISTORY: He used to smoke and drink. He does not do it anymore. PAST MEDICAL HISTORY: Mainly positive for hypertension, diabetes. PAST SURGICAL HISTORY: Left nephrectomy secondary to renal CA and status post recent prostatic biopsy. PHYSICAL EXAMINATION HEART: Shows regular rhythm. Normal S1, S2 sounds. LUNGS: Clear bilaterally. ABDOMEN: Soft. EXTREMITIES: Show no evidence of cyanosis or hematoma. LABS: On the BMP, sodium 135, potassium 3.7, chloride 100, CO2 25, BUN 14, creatinine 0.87, glucose 136. On the CBC, white blood count 4.04, hemoglobin 12.3, hematocrit 38.0, platelet count 235,000. AST 12, ALT 88, total bilirubin 0.8, alkaline phosphatase 63. CT of the abdomen and pelvis show possible abscess of the prostate. FINAL IMPRESSION 1. Prostatic abscess. 2. Uncontrolled diabetes mellitus type 2. 3. Hypertension. 4. Anemia of chronic disease. 5. Status post nephrectomy. PLAN OF TREATMENT: We are going to start him on Levaquin 500 mg IV daily. Resume home medications. Continue diabetic diet. Monitor blood sugar a.c. and nightly. Dr. Yung, urology, is going to see the patient for the drainage of the abscess. Job#: [id number]
[2018-07-17 20:20] VITALS: BP 164/79
[2018-07-17] MEDS: FAMOTIDINE 20 MG TAB PO SCH (20:50)
[2018-07-17] MEDS: PRAVASTATIN 20 MG TAB PO SCH (20:50)
[2018-07-17] MEDS: FERROUS SULFATE 325 MG TAB PO SCH (20:50)
[2018-07-17] MEDS: AMLODIPINE BESYLATE 5 MG TAB PO SCH (20:50)
[2018-07-17] MEDS: HYDROCODONE/APAP 5MG-325MG TAB PO PRN (20:55)
[2018-07-17] MEDS ORDERED: NON-FORMULARY MEDICATION (Ranitidine Hcl 300 MG) PO SCH (21:00)
[2018-07-18] VITALS (8 sets, daily range): BP systolic 125–166; BP diastolic 70–84
[2018-07-18] MEDS: SODIUM CHLORIDE 0.9% 1000ML 1,000 ML IV SCH ×3 (00:39→17:12)
[2018-07-18 06:25] LABS: BASOPHILS % 0.3 % (0.0-1.0); EOSINOPHILS # (AUTO) 0.2 (0.0-0.4); EOSINOPHILS % 4.8 % (0.0-6.0); HEMATOCRIT 39.5 % (38.2-49.6); HEMOGLOBIN 12.8 g/dL (14.0-18.0); LYMPHOCYTES # (AUTO) 0.7 (1.0-3.2); LYMPHOCYTES % 19.4 % (18.0-39.1); MEAN CORPUSCULAR HEMOGLOBIN 26.4 pg (28-32); MEAN CORPUSCULAR HGB CONC 32.4 g/dL (31-35); MEAN CORPUSCULAR VOLUME 81.4 fL (81-99); MONOCYTES # (AUTO) 0.4 (0.2-0.8); NEUTROPHILS # (AUTO) 2.3 (2.1-6.9); NEUTROPHILS % 64.2 % (38.7-80.0); PLATELET COUNT 212 x10e3/uL (140-360); RED BLOOD COUNT 4.85 x10e6/uL (4.3-5.7); RED CELL DISTRIBUTION WIDTH 14.6 % (11.7-14.4)
[2018-07-18 06:58] LABS: ALANINE AMINOTRANSFERASE 8 IU/L (0-55); ALBUMIN 3.1 g/dL (3.5-5.0); ALKALINE PHOSPHATASE 53 IU/L (40-150); ANION GAP 11.2 mmol/L (8-16); BLOOD UREA NITROGEN 12 mg/dL (7-26); BUN/CREATININE RATIO 12 (6-25); CALCIUM 8.5 mg/dL (8.4-10.2); CARBON DIOXIDE 24 mmol/L (22-29); CHLORIDE 103 mmol/L (98-107); CREATININE, SERUM 0.99 mg/dL (0.72-1.25); EST GLOMERULAR FILTRATION RATE > 60 ML/MIN (60-); GLUCOSE 139 mg/dL (74-118); POTASSIUM 4.2 mmol/L (3.5-5.1); SODIUM 134 mmol/L (136-145)
--- NOTE | 2018-07-18 07:25 | NUR ---
PATIENT IN BED RESTING WITH NO RESPIRATORY DISTRESS. DENIED PAIN AT THIS TIME. URINAL EMPTIED AND CLEANSED. BED IN LOWER POSITION, CALL LIGHT AT REACH.
--- NOTE | 2018-07-18 07:29 | NUR ---
PATIENT REFUSED PERINEAL AREA TO BE ASSESSED.
[2018-07-18] MEDS ORDERED: METFORMIN HCL 500 MG TAB PO SCH (08:00)
[2018-07-18] MEDS ORDERED: NON-FORMULARY MEDICATION (Pravastatin Sodium 40 MG) PO SCH (09:00)
[2018-07-18] MEDS: LISINOPRIL 20 MG TAB PO SCH (09:34)
[2018-07-18] MEDS: HYDROCHLOROTHIAZIDE 25 MG TAB PO SCH (09:34)
[2018-07-18] MEDS: TAMSULOSIN HCL 0.4 MG CAP PO SCH ×2 (09:35→17:12)
[2018-07-18] MEDS: FERROUS SULFATE 325 MG TAB PO SCH ×3 (09:35→21:44)
[2018-07-18] MEDS: FINASTERIDE 5 MG TAB PO SCH (09:35)
--- NOTE | 2018-07-18 12:15 | NUR ---
PATIENT SITTING UP IN BED EATING LUNCH, NO COMPLAIN VOICED. BED IN LOWER POSITION, CALL LIGHT AT REACH.
--- NOTE | 2018-07-18 15:30 | NUR ---
WALKING ROUND MADE, PATIENT IN BED RESTING WITH EYES CLOSED. BED IN LOWER POSITION, CALL LIGHT AT REACH.
--- NOTE | 2018-07-18 16:51 | Progress Note ---
DATE: July 18, 2018 INTERNAL MEDICINE PROGRESS NOTE SUBJECTIVE: Patient is still complaining of rectal pain. PHYSICAL EXAMINATION: HEART: Shows regular rhythm. Normal S1 and S2 sounds. LUNGS: Clear bilaterally. VITAL SIGNS: Blood pressure is 142/74, temperature 98.1, heart rate is 74 per minute, respiratory rate 20 per minute, oxygen saturation 100%. On the CBC: White blood count 3.55, hemoglobin 12.8, hematocrit 39.5, platelet count 204,000. AST 12, ALT 8, total bilirubin 0.9, alkaline phosphatase 53. On the BMP: Sodium 134, potassium 4.2, chloride 103, CO2 24, BUN 12, creatinine 0.99. FINAL IMPRESSION: 1. Prostate abscess. 2. Uncontrolled diabetes mellitus type 2. 3. Hypertension 4. Chronic anemia. PLAN OF TREATMENT: Continue Levaquin 500 mg IV daily. Continue normal saline at 125 mL an hour. Norvasc 5 mg daily. Ferrous sulfate 325 mg 3 times a day. Pepcid 20 mg daily. Tylenol 325 mg q. 4 hours p.o. as needed for pain or fever. Proscar 5 mg daily. Pravastatin 40 mg daily. [place] 1 tablet q.4 hours as needed. Levothyroxine 88 mcg daily. Continue Flomax 0.5 mg twice a day. Lisinopril [address] Yung, urologist, is going to drain the abscess. Job#: [id number] EV MTDD
[2018-07-18] MEDS: LEVOFLOXACIN 500MG/D5W 100ML 100 ML IV SCH (18:27)
[2018-07-18] MEDS: FAMOTIDINE 20 MG TAB PO SCH (21:44)
[2018-07-18] MEDS: AMLODIPINE BESYLATE 5 MG TAB PO SCH (21:44)
[2018-07-18] MEDS: PRAVASTATIN 20 MG TAB PO SCH (21:45)
--- NOTE | 2018-07-18 22:21 | NUR ---
PT IS RESTING IN BED. NO RESPIRATORY DISTRESS NOTED. BED IN THE LOWEST POSITION, LOCKED, BED ALARM ON, AND CALL LIGHT WITHIN REACH. WILL CONTINUE TO MONITOR.
[2018-07-19] VITALS (7 sets, daily range): BP systolic 129–165; BP diastolic 78–92
[2018-07-19] MEDS: SODIUM CHLORIDE 0.9% 1000ML 1,000 ML IV SCH ×3 (01:08→20:50)
[2018-07-19] MEDS: LEVOTHYROXINE SODIUM 88 MCG TAB PO SCH (05:30)
--- NOTE | 2018-07-19 06:14 | NUR ---
PAGE DR SU FOR AN ORDER. AWAITING CALL BACK
[2018-07-19] MEDS ORDERED: LACTULOSE SYRUP 20 GM/30 ML UDC PO PRN (06:30)
--- NOTE | 2018-07-19 06:33 | NUR ---
PER DR. OLIVO LACTULOSE 20GM Q4H PRN AND DOCUSATE SODIUM 100MG BID. WILL CONTINUE TO MONITOR.
--- NOTE | 2018-07-19 06:43 | NUR ---
PER DR SU CLINDANYCIN 600MG IV Q6H. WILL CONTINUE TO MONITOR.
[2018-07-19] MEDS ORDERED: CLINDAMYCIN 600MG / 50ML 50 ML IV SCH (06:51)
--- NOTE | 2018-07-19 07:16 | NUR ---
PATIENT IN BED RESTING, TRYING TO USE THE URINAL, CONTINUE TO REFUSE HIS PERINEAL AREA TO BE ASSESSED. BED IN LOWER POSITION, CALL LIGHT AT REACH.
[2018-07-19] MEDS: CLINDAMYCIN 600MG / 50ML 50 ML IV SCH ×3 (09:15→20:48)
[2018-07-19] MEDS: DOCUSATE SODIUM 100 MG CAP PO SCH ×2 (09:17→17:21)
[2018-07-19] MEDS: HYDROCHLOROTHIAZIDE 25 MG TAB PO SCH (09:17)
[2018-07-19] MEDS: TAMSULOSIN HCL 0.4 MG CAP PO SCH ×2 (09:18→17:21)
[2018-07-19] MEDS: FERROUS SULFATE 325 MG TAB PO SCH ×3 (09:18→20:48)
[2018-07-19] MEDS: LISINOPRIL 20 MG TAB PO SCH (09:18)
[2018-07-19] MEDS: FINASTERIDE 5 MG TAB PO SCH (09:18)
--- NOTE | 2018-07-19 11:49 | NUR ---
PATIENT AMBULATED TO THE RESTROOM AND BACK TO BED. NO COMPLAIN VOICED. CALL LIGHT AT REACH.
--- NOTE | 2018-07-19 15:00 | NUR ---
PATIENT RECEIVED A WARM SITZ BATH ORDERED. ASSISTED WITH SHOWER AND BACK TO BED. CALL LIGHT AT REACH.
--- NOTE | 2018-07-19 15:29 | Progress Note ---
DATE: July 19, 2018 INTERNAL MEDICINE PROGRESS NOTE SUBJECTIVE: The patient is doing well. The patient currently seen by Dr. Yung. He went to do a drainage of the prostate abscess on Saturday. PHYSICAL EXAM VITAL SIGNS: Blood pressure is 137/82, temperature 97.3, heart rate 76 per minute, respiratory rate 18 per minute. Ox saturation 100%. HEART: Shows regular rhythm. Normal S1, S2 sounds. LUNGS: Clear bilaterally. ABDOMEN: Soft. LABORATORY DATA: On the BMP, sodium 134, potassium 4.2, chloride 103, CO2 24, BUN 12, creatinine 0.99. Glucose 139. On the CBC, white blood count 3.55, hemoglobin 12.8, hematocrit 39.5, and platelet count 212,000. AST 12, ALT 8, total bilirubin 0.9. Alkaline phosphatase 53. FINAL IMPRESSION 1. Prostate abscess. 2. Essential hypertension. 3. Benign prostatic hypertrophy, status post recent biopsy. 4. Hypercholesterolemia. 5. Hypothyroidism. PLAN OF TREATMENT: Continue the current IV antibiotic therapy with Levaquin 500 mg IV q.24 hours, clindamycin q.6 hours, and continue normal saline which we are going to reiterate and patient is going to be going for drainage of the abscess on Saturday. Job#: [id number] KEEGAN LINDQUIST
[2018-07-19] MEDS: LEVOFLOXACIN 500MG/D5W 100ML 100 ML IV SCH (18:06)
[2018-07-19] MEDS: AMLODIPINE BESYLATE 5 MG TAB PO SCH (20:48)
[2018-07-19] MEDS: FAMOTIDINE 20 MG TAB PO SCH (20:48)
[2018-07-19] MEDS: PRAVASTATIN 20 MG TAB PO SCH (20:48)
--- NOTE | 2018-07-19 23:00 | NUR ---
Patient helped to sit on warm water.
[2018-07-20] VITALS (7 sets, daily range): BP systolic 117–135; BP diastolic 73–84
[2018-07-20] MEDS: CLINDAMYCIN 600MG / 50ML 50 ML IV SCH ×4 (02:44→21:25)
--- NOTE | 2018-07-20 04:00 | NUR ---
patient rounded and stable.
--- NOTE | 2018-07-20 05:00 | NUR ---
Patient assisted to sit on the bed herrera with warm water.
--- NOTE | 2018-07-20 06:40 | NUR ---
patient condition throughout the night was stable. patient endorsed to next shift for continuity of care.
[2018-07-20] MEDS: SODIUM CHLORIDE 0.9% 1000ML 1,000 ML IV SCH ×4 (07:10→20:39)
--- NOTE | 2018-07-20 07:11 | NUR ---
PATIENT IN BED WITH HEAD OF BED ELEVATED WATCHING TV, DENIED PAIN. IV FLUID INFUSING ORDERED. BED IN LOWER POSIT, CALL LIGHT AT REACH.
[2018-07-20] MEDS: LEVOTHYROXINE SODIUM 88 MCG TAB PO SCH (07:15)
[2018-07-20] MEDS: FERROUS SULFATE 325 MG TAB PO SCH ×3 (09:10→21:25)
[2018-07-20] MEDS: HYDROCHLOROTHIAZIDE 25 MG TAB PO SCH (09:10)
[2018-07-20] MEDS: DOCUSATE SODIUM 100 MG CAP PO SCH ×2 (09:10→17:24)
[2018-07-20] MEDS: LISINOPRIL 20 MG TAB PO SCH (09:10)
[2018-07-20] MEDS: TAMSULOSIN HCL 0.4 MG CAP PO SCH ×2 (09:10→17:24)
[2018-07-20] MEDS: FINASTERIDE 5 MG TAB PO SCH (09:10)
--- NOTE | 2018-07-20 12:00 | NUR ---
WARM SITZ BATH OFFERED, PATIENT STATED THAT HE WILL DO IT LATER. IN BED WITH CALL LIGHT AT REACH.
--- NOTE | 2018-07-20 14:12 | NUR ---
WARM SITZ BATH GIVEN. PATIENT ASSISTED WITH SHOWER, BACK TO BED WITH CALL LIGHT AT REACH.
--- NOTE | 2018-07-20 15:30 | NUR ---
PATIENT IN BED WITH HEAD OF BED ELEVATED TALKING TO FAMILY MEMBER VISITING. CALL LIGHT AT REACH.
--- NOTE | 2018-07-20 15:35 | Progress Note ---
DATE: July 20, 2018 INTERNAL MEDICINE PROGRESS NOTE SUBJECTIVE: The patient is going for surgery tomorrow for a prostatic abscess. PHYSICAL EXAM VITAL SIGNS: Blood pressure 117/74, temperature 98.2, heart rate 74 per minute, respiratory rate 16 per minute, ox saturation 98%. HEART: Show regular rhythm. Normal S1 and S2 sounds. LUNGS: Clear bilaterally. ABDOMEN: Soft. EXTREMITIES: Show no evidence of cyanosis, edema, or trauma. LABS: On the BMP; sodium 134, potassium 4.2, chloride 103, CO2 of 24, BUN 12, creatinine 0.99, glucose 113. On the CBC; white blood count 3.55, hemoglobin 13.8, hematocrit 39.5, platelet count 212,000. AST 12, ALT 8, total bilirubin 0.9, alkaline phosphatase 53. FINAL IMPRESSION 1. Prostatic abscess. 2. Uncontrolled diabetes mellitus type 2. 3. Hypertension. 4. Chronic anemia. 5. Hypothyroidism. PLAN OF TREATMENT: Continue Levaquin 500 mg IV daily. Continue clindamycin IV every 6 hours. Continue sodium chloride at 125 mL an hour, amlodipine 5 mg daily, Flomax 0.4 mg twice a day, hydrochlorothiazide 25 mg daily, lactulose 20 gram q.4 hours, ferrous sulfate 325 mg 3 times a day, Pepcid 20 mg daily, Tylenol 625 mg q.4 hours as needed for pain or fever, Proscar 5 mg daily, pravastatin 40 mg daily, [place] 1 tablet q.4 hours as needed for severe pain, levothyroxine 88 mcg daily, lisinopril 20 mg daily, and Colace 100 mg twice a day. The patient is scheduled to go for prostatic abscess drainage tomorrow by Dr. Yung. Job#: [id number] BARBARA LINDQUIST
[2018-07-20] MEDS: LEVOFLOXACIN 500MG/D5W 100ML 100 ML IV SCH (18:22)
--- NOTE | 2018-07-20 19:15 | NUR ---
Received patient from day nurse, patient is alert and oriented x 3, introduced self to patient, safety and fall precaution maintained as per hospital protocol: bed in lowest position and locked, needed items beside bed and call francisco placed within patient reach, patient instructed to use it to call nurses for any assistance needed, patient verbalized understanding. patient is currently stable, will continue to monitor.
[2018-07-20] MEDS: FAMOTIDINE 20 MG TAB PO SCH (21:25)
[2018-07-20] MEDS: PRAVASTATIN 20 MG TAB PO SCH (21:25)
[2018-07-20] MEDS: AMLODIPINE BESYLATE 5 MG TAB PO SCH (21:28)
[2018-07-21] VITALS (7 sets, daily range): BP systolic 119–156; BP diastolic 67–88
[2018-07-21] MEDS: CLINDAMYCIN 600MG / 50ML 50 ML IV SCH ×3 (03:22→14:46)
[2018-07-21] MEDS: SODIUM CHLORIDE 0.9% 1000ML 1,000 ML IV SCH ×2 (03:22→14:45)
[2018-07-21] MEDS: LEVOTHYROXINE SODIUM 88 MCG TAB PO SCH (06:00)
--- NOTE | 2018-07-21 06:46 | NUR ---
patient stated he was told by Dr. Holloway to be npo, Md paged and no call back yet.
--- NOTE | 2018-07-21 07:25 | NUR ---
pt in bed resting no distress noted,denies pain.
--- NOTE | 2018-07-21 07:50 | NUR ---
patient condition throughout the night was stable, patient endorsed to next shift for continuity of care.
--- NOTE | 2018-07-21 08:00 | NUR ---
DR SU HERE NO NEW ORDERS
[2018-07-21] MEDS: DOCUSATE SODIUM 100 MG CAP PO SCH ×2 (08:45→16:34)
[2018-07-21] MEDS: TAMSULOSIN HCL 0.4 MG CAP PO SCH ×2 (08:45→16:34)
[2018-07-21] MEDS: LISINOPRIL 20 MG TAB PO SCH (08:45)
[2018-07-21] MEDS: FINASTERIDE 5 MG TAB PO SCH (08:45)
[2018-07-21] MEDS: FERROUS SULFATE 325 MG TAB PO SCH ×3 (08:45→20:48)
[2018-07-21] MEDS: HYDROCHLOROTHIAZIDE 25 MG TAB PO SCH (08:45)
--- NOTE | 2018-07-21 11:30 | NUR ---
PT IN BED RESTING ,DENIES PAIN
[2018-07-21] MEDS: LEVOFLOXACIN 500MG/D5W 100ML 100 ML IV SCH (17:38)
--- NOTE | 2018-07-21 17:39 | NUR ---
PT UP IN BED NO DISTRESS NOTED DENIES PAIN,
--- NOTE | 2018-07-21 18:43 | Progress Note ---
DATE: July 21, 2018 INTERNAL MEDICINE PROGRESS NOTE SUBJECTIVE: Patient is doing well. PHYSICAL EXAM: VITAL SIGNS: The BP is 131/80. Temperature 98.1. Heart rate 74 per minute. Respiratory rate 18 per minute. Oxygen saturation 98%. HEART: Shows regular rhythm. Normal S1 and S2 sounds. LUNGS: Clear bilaterally. ABDOMEN: Soft. EXTREMITIES: Show no evidence of cyanosis, edema or trauma. On the BMP: Sodium 134, potassium 4.2, chloride 103, CO2 24, BUN 12, creatinine 0.99, glucose 129. On the CBC: White blood count 3.55, hemoglobin 12.8, hematocrit 39.5, platelet count 212,000. AST 12, ALT 8, total bilirubin 0.9, alkaline phosphatase 53. FINAL IMPRESSION: 1. Prostate abscess. 2. Uncontrolled diabetes mellitus type 2. 3. Hypertension. 4. Chronic anemia. PLAN OF TREATMENT: Continue Levaquin 500 mg IV q.24 hours, clindamycin IV q.6 hours. Continue amlodipine 5 mg daily. Flomax 0.4 mg twice a day. Tylenol 325 mg q.4 hours as needed for temperature more than 101. Simvastatin 20 mg daily. Ferrous sulfate 325 mg 3 times a day. Pepcid 20 mg daily. Garvin 1 tablet q.4 hours as needed for severe pain. Proscar 5 mg daily. Lisinopril 20 mg daily. Colace 100 mg twice a day. Levothyroxine 88 mcg daily. Hydrochlorothiazide 25 mg daily. Lactulose 20 grams q.4 hours. We are going to consult Dr. Plascencia for surgery. Dr. Yung, urologist, thinks that there is not an abscess in the prostate. He is suspecting colovesical fistula. So, Dr. Rufino Plascencia will be consulted for surgery. Discontinue IV fluids. Job#: [id number] EV MTDD
--- NOTE | 2018-07-21 19:30 | NUR ---
patient recieved awake, alert, lying quietly in bed. no c/o pain noted. pm assessment complete. patient instructed to call for assistance when needed.
[2018-07-21] MEDS: SIMVASTATIN 20 MG TAB PO SCH (20:48)
[2018-07-21] MEDS: FAMOTIDINE 20 MG TAB PO SCH (20:48)
[2018-07-21] MEDS: AMLODIPINE BESYLATE 5 MG TAB PO SCH (20:48)
[2018-07-22] VITALS (7 sets, daily range): BP systolic 125–151; BP diastolic 72–83
[2018-07-22] MEDS: LEVOTHYROXINE SODIUM 88 MCG TAB PO SCH (05:35)
--- NOTE | 2018-07-22 07:00 | NUR ---
Report and round completed, pt in bed resting no issues, c/o or concerns at this time.
[2018-07-22] MEDS: HYDROCHLOROTHIAZIDE 25 MG TAB PO SCH (08:03)
[2018-07-22] MEDS: DOCUSATE SODIUM 100 MG CAP PO SCH ×2 (08:03→17:09)
[2018-07-22] MEDS: LISINOPRIL 20 MG TAB PO SCH (08:04)
[2018-07-22] MEDS: TAMSULOSIN HCL 0.4 MG CAP PO SCH ×2 (08:04→17:09)
[2018-07-22] MEDS: FERROUS SULFATE 325 MG TAB PO SCH ×3 (08:04→20:41)
[2018-07-22] MEDS: FINASTERIDE 5 MG TAB PO SCH (08:04)
--- NOTE | 2018-07-22 14:49 | NUR ---
Nutrition Screen Note RD Recommendation for Physician: -Continue ADA diet as ordered Plan of Care: RD following, monitoring for tolerance and adequacy Nutrition reason for involvement: LOS Primary Diagnose(s): Prostate abscess. PMH: anemia, DM, HTN Ht: 64in Wt: 148.25lb BMI: 25.4kg/m2 IBW: 130lb RD Assessment: (07/22) Chart reviewed. Labs and meds reviewed. 73yo M, who was admitted for scrotal abscess. Pt didnt speak any [place]; nephew on the phone helped to translate. Pt reported good appetite with 75-100% recorded meal intake. No GI complains noted. LBM 07/22. Pt denied any chewing or swallowing difficulty. No recent weight loss reported. Will cont to monitor. Please consult as needed. Current Diet: ADA diet Malnutrition Evaluation (07/22) The patient does not meet criteria for a specified degree of malnutrition at this time. Will re-evaluate at follow-up as appropriate. Diet Education Needs Assessment: Diet education not indicated. Nutrition Care Level: low Signed: Jacki Mcknight, , RD, LD
[2018-07-22] MEDS: LEVOFLOXACIN 500MG/D5W 100ML 100 ML IV SCH (17:09)
--- NOTE | 2018-07-22 18:18 | NUR ---
In bed resting watching tv. No complains or concerns at this time.
--- NOTE | 2018-07-22 19:00 | NUR ---
patient recieved awake, alert, lying quietly in bed. no c/o pain noted. pm assessment complete. patient instructed to call for assistance when needed.
[2018-07-22] MEDS: AMLODIPINE BESYLATE 5 MG TAB PO SCH (20:41)
[2018-07-22] MEDS: FAMOTIDINE 20 MG TAB PO SCH (20:41)
[2018-07-22] MEDS: SIMVASTATIN 20 MG TAB PO SCH (20:41)
--- NOTE | 2018-07-22 23:24 | Discharge Summary ---
HISTORY OF PRESENT ILLNESS: Patient is a 73-year-old male who had a past medical history positive for recent prostate biopsy, history of hypertension, history of hypothyroidism. Patient was having pain in the prostatic area. He was found to have a nodule in the prostatic area. Dr. Yung, urologist, saw the patient for needle biopsy. There were concerns about an abscess. Dr. Yung does not think it is an abscess. We consulted Dr. Plascencia for the possibility of ruling out fistula. Dr. Plascencia's, surgeon, opinion is there is no need for colonoscopy or colon resection intervention. He recommended urology to continue following the case. If Dr. Yung does not think that he needs any additional intervention, we are going to send the patient home with oral antibiotics for 10 days. PHYSICAL EXAM: Blood pressure 151/83, temperature is 96.9, heart rate 75 per minute, respiratory rate 20 per minute, oxygen saturation 99%. LAB WORK: On the BMP, sodium 134, potassium 4.2, chloride 103, CO2 24, BUN 12, creatinine 0.99, and glucose 139. On the CBC, white blood count 3.55, hemoglobin 12.8, hematocrit 39.5, platelet count 212,000. AST 12, ALT 8, total bilirubin 0.9, alkaline phosphatase 53. FINAL IMPRESSIONS: 1. Possible prostatic infection. 2. Hypertension. 3. Hypothyroidism. PLAN OF TREATMENT: We are going to send the patient home with Levaquin 500 mg daily for 10 days. Continue amlodipine 5 mg daily, finasteride 5 mg daily, lisinopril 20 mg daily, Colace 100 mg twice a day, levothyroxine 88 mcg daily, hydrochlorothiazide 25 mg daily, Flomax 0.4 mg twice a day, simvastatin 20 mg daily, Pepcid 20 mg twice a day. I am going to prescribe also Tylenol 3 one tablet every 4 hours as needed for pain. Discharge home tomorrow if okay with Dr. Yung, urology. Follow up with Dr. Yung in a week and myself for primary care physician in a week. DIET: Low-salt diet. LEAH OLIVO MD Job#: [id number] GE
[2018-07-23] VITALS (8 sets, daily range): BP systolic 105–140; BP diastolic 61–71
[2018-07-23] MEDS: LEVOTHYROXINE SODIUM 88 MCG TAB PO SCH ×2 (05:10→21:42)
--- NOTE | 2018-07-23 07:10 | NUR ---
PATIENT IN RESTING WITH NO RESPIRATORY DISTRESS. URINAL EMPTIED AND CLEANSED. BED IN LOWER POSITION, CALL LIGHT AT REACH.
[2018-07-23] MEDS: TAMSULOSIN HCL 0.4 MG CAP PO SCH ×2 (09:33→17:27)
[2018-07-23] MEDS: FERROUS SULFATE 325 MG TAB PO SCH ×3 (09:33→20:45)
[2018-07-23] MEDS: LISINOPRIL 20 MG TAB PO SCH (09:33)
[2018-07-23] MEDS: HYDROCHLOROTHIAZIDE 25 MG TAB PO SCH (09:33)
[2018-07-23] MEDS: FINASTERIDE 5 MG TAB PO SCH (09:33)
[2018-07-23] MEDS: DOCUSATE SODIUM 100 MG CAP PO SCH ×2 (09:33→17:27)
--- NOTE | 2018-07-23 11:22 | NUR ---
PATIENT IN BED RESTING. DENIED PAIN.
--- NOTE | 2018-07-23 13:39 | NUR ---
SPOKE WITH DR SU REGARDING PATIENT DISCHARGE. HE STATED THAT HE SPOKE TO DR SAMANIEGO WHO DOES NOT WANT TO DO SURGERY NOW. HE IS TRYING TO REACH THE PATIENT'S SON/NEPHEW TO OFFER OPTIONS.
--- NOTE | 2018-07-23 16:04 | NUR ---
PATIENT ASSISTED WITH SHOWER AND BACK TO BED. ALL PERSONAL ITEMS CLOSE TO PATIENT, CALL LIGHT AT REACH.
--- NOTE | 2018-07-23 16:34 | NUR ---
MET W PT AT THE BEDSIDE W BEDSIDE NURSE; LORENE SU. PT IS CHADIAN SPEAKING. STATES HE WILL CALL HIS SON DAMIEN TO SPEAK TO CM. SPOKE W DAMIEN ON SPEAKER PHONE FROM PT'S PHONE. EXPLAINED THE PURPOSE OF THE IMM. STATES OK FOR PT TO SIGN. CHADIAN IMM LETTER WAS SIGNED BY PT. DAMIEN WAS SAYING HIS FATHER WAS NOT READY TO DC HOME TODAY AND HE NEEDED TO SPEAK W THE DOCTOR BEFORE HE IS DISCHARGED. BEDSIDE NURSE STATES SHE WILL PASS ON TO MD. BEFORE CM COULD ASK MORE ABOUT PT HOME SITUATION THE PT DC'D THE CALL. WILL CONT TO FOLLOW. Addendum: 07/23/18 at 1638 by Maryjo Rodgers COPY TO PT AND COPY TO CHART
--- NOTE | 2018-07-23 17:40 | NUR ---
CALL RECEIVED FROM DR ARROYO WHO STATED THAT PATIENT WILL HAVE SURGERY IN THE MORNING. PATIENT TO BE NPO AFTER MIDNIGHT.
--- NOTE | 2018-07-23 17:41 | NUR ---
FROM PREVIEWS, IT IS DR SU.
[2018-07-23] MEDS: LEVOFLOXACIN 500MG/D5W 100ML 100 ML IV SCH (18:47)
--- NOTE | 2018-07-23 19:00 | NUR ---
Received patient in bed watching tv. No s/s of resp distress. Call light within reach and instructed to call for assistance.
--- NOTE | 2018-07-23 19:40 | Progress Note ---
DATE: July 23, 2018 INTERNAL MEDICINE PROGRESS NOTE SUBJECTIVE: Dr. Yung, urologist decided to do a prostatectomy tomorrow due to the fact that patient has an outlet urinary obstruction. PHYSICAL EXAMINATION: HEART: Shows regular rhythm. Normal S1 and S2 sounds. LUNGS: Clear bilaterally. ABDOMEN: Soft. VITAL SIGNS: Blood pressure 123/71, temperature 96.7, heart rate 79 per minute, respiratory rate 18 per minute. Oxygen saturation 96%. On the BMP, sodium 134, potassium 4.2, chloride 103, CO2 24, BUN 12, creatinine 0.99, glucose 139. On the CBC, white blood count 3.55, hemoglobin 12.8, hematocrit 39.5, platelet count 212,000. AST 12, ALT 8, total bilirubin 0.9, alkaline phosphatase 53. FINAL IMPRESSION: 1. Benign prostatic hypertrophy with urinary outlet obstruction. 2. Hypertension. 3. Hypercholesterolemia. 4. Hypothyroidism. PLAN OF TREATMENT: Continue Levaquin 500 mg IV daily, amlodipine 5 mg daily, ferrous sulfate 325 mg 3 times a day, finasteride 5 mg daily, lisinopril 20 mg daily, Colace 100 mg twice a day, levothyroxine 88 mcg daily, hydrochlorothiazide 25 mg daily, lactulose 20 g q.4h. as needed for constipation, Flomax 0.4 mg twice a day, Tylenol 625 mg q.4h. as needed for pain or fever, simvastatin 20 mg at bedtime, Pepcid 20 mg daily, Baker 1 tablet q.4h. as needed for pain. So tomorrow, he will go for prostatectomy as per Dr. Yung. Job#: [id number] DR LINDQUIST
[2018-07-23] MEDS: SIMVASTATIN 20 MG TAB PO SCH (20:45)
[2018-07-23] MEDS: FAMOTIDINE 20 MG TAB PO SCH (20:45)
[2018-07-23] MEDS: AMLODIPINE BESYLATE 5 MG TAB PO SCH (20:45)
[2018-07-24] VITALS: BP 101/63
[2018-07-24 04:00] VITALS: BP 101/60
--- NOTE | 2018-07-24 07:08 | NUR ---
pt alert resp even and unlabored at this time no distress noted , pt has call light in reach.
[2018-07-24 08:21] VITALS: BP 112/63
[2018-07-24] MEDS: LISINOPRIL 20 MG TAB PO SCH (09:00)
[2018-07-24] MEDS: HYDROCHLOROTHIAZIDE 25 MG TAB PO SCH (09:00)
[2018-07-24] MEDS: FERROUS SULFATE 325 MG TAB PO SCH ×3 (09:00→20:44)
[2018-07-24] MEDS: TAMSULOSIN HCL 0.4 MG CAP PO SCH ×2 (09:00→17:22)
[2018-07-24] MEDS: FINASTERIDE 5 MG TAB PO SCH (09:00)
[2018-07-24] MEDS: DOCUSATE SODIUM 100 MG CAP PO SCH ×2 (09:00→17:22)
--- NOTE | 2018-07-24 12:10 | NUR ---
pt off unit for procedure.
--- NOTE | 2018-07-24 12:14 | Progress Note ---
DATE: July 24, 2018 INTERNAL MEDICINE PROGRESS NOTE SUBJECTIVE: The patient is right now undergoing surgery. He is not in the room. Job#: [id number] JAN LINDQUIST
[2018-07-24] MEDS ORDERED: BELLADONNA/OPIUM 30 MG SUPP RC ONE (12:29)
[2018-07-24] MEDS ORDERED: SODIUM CHLORIDE 0.9% 1000ML 1,000 ML ONE (14:29)
[2018-07-24] MEDS: HYDROCODONE/APAP 5MG-325MG TAB PO PRN (15:54)
[2018-07-24 15:55] VITALS: BP 120/75
--- NOTE | 2018-07-24 16:10 | NUR ---
pt return to unit from procedure, with cbi intact.
[2018-07-24] MEDS ORDERED: FENTANYL CITRATE/PF 100MCG/2 ML INJ ONE (19:02)
--- NOTE | 2018-07-24 19:19 | NUR ---
report given to oncoming nurse, for continued care.
--- NOTE | 2018-07-24 19:25 | NUR ---
RECEIVED PATIENT IN BED WATCHING TV. NO S/S OF RESP DISTRESS. DENIES PAIN OR PRESSURE AT THIS TIME. HAS CBI INTACT AND DRAINING BLOOD RED, NO CLOTS. BED LOCKED IN LOWEST SETTING AND CALL LIGHT WITHIN REACH. INSTRUCTED TO CALL FOR ASSISTANCE. PATIENT VERBALIZED UNDERSTANDING.
[2018-07-24] MEDS ORDERED: SEVOFLURANE INHAL SOLN 250 ML PEN BTL ONE ×2 (19:36→19:37)
[2018-07-24] MEDS ORDERED: LIDOCAINE HCL 2% LOCAL INJ 5 ML SDV VIAL INJ ONE ×2 (19:36→19:37)
[2018-07-24] MEDS ORDERED: PROPOFOL IV EMULSION 10 MG/ML 20 ML VIAL ONE ×2 (19:36→19:37)
[2018-07-24] MEDS ORDERED: DEXAMETHASONE SOD PHOS INJ 4 MG/ML VIAL ONE ×3 (19:36→19:37)
[2018-07-24] MEDS ORDERED: ONDANSETRON HCL INJ 2MG/ML 2ML 2 MG/ML VIAL ONE ×2 (19:36→19:37)
[2018-07-24 20:00] VITALS: BP 120/68
--- NOTE | 2018-07-24 20:40 | NUR ---
CBI INTACT, PATENT, AND DRAINED 1000 ML BLOODY RED. REPLACED N/S BAGS.
[2018-07-24] MEDS: AMLODIPINE BESYLATE 5 MG TAB PO SCH (20:44)
[2018-07-24] MEDS: SIMVASTATIN 20 MG TAB PO SCH (20:44)
[2018-07-24] MEDS: FAMOTIDINE 20 MG TAB PO SCH (20:44)
[2018-07-24 22:03] VITALS: BP 120/68
[2018-07-25] VITALS (8 sets, daily range): BP systolic 98–143; BP diastolic 56–84
--- NOTE | 2018-07-25 | NUR ---
CBI INTACT AND PATENT. NOTED 1800CC OF BLOOD RED DRAINAGE. DENIES PAIN OR PRESSURE. PATIENT IS RESTING COMFORTABLY IN BED. NO COMPLAINTS.
[2018-07-25] MEDS: LEVOTHYROXINE SODIUM 88 MCG TAB PO SCH ×2 (05:49→06:00)
[2018-07-25 07:28] LABS: BASOPHILS % 0.1 % (0.0-1.0); EOSINOPHILS # (AUTO) 0.1 (0.0-0.4); EOSINOPHILS % 0.8 % (0.0-6.0); HEMATOCRIT 35.3 % (38.2-49.6); HEMOGLOBIN 11.5 g/dL (14.0-18.0); LYMPHOCYTES # (AUTO) 0.7 (1.0-3.2); LYMPHOCYTES % 9.3 % (18.0-39.1); MEAN CORPUSCULAR HEMOGLOBIN 26.7 pg (28-32); MEAN CORPUSCULAR HGB CONC 32.6 g/dL (31-35); MEAN CORPUSCULAR VOLUME 81.9 fL (81-99); MONOCYTES # (AUTO) 0.6 (0.2-0.8); MONOCYTES % 8.6 % (4.4-11.3); NEUTROPHILS # (AUTO) 5.8 (2.1-6.9); NEUTROPHILS % 81.1 % (38.7-80.0); PLATELET COUNT 209 x10e3/uL (140-360); RED BLOOD COUNT 4.31 x10e6/uL (4.3-5.7); RED CELL DISTRIBUTION WIDTH 15.7 % (11.7-14.4)
--- NOTE | 2018-07-25 07:45 | NUR ---
PT UP IN BED NO DSITRESS NOTED DENIES PAIN,HELLER TO BSD HEMATURIA,
--- NOTE | 2018-07-25 08:00 | NUR ---
PT HAS HELLER TO BSD WITH CONTINOUS IRRIGATION HEMATURIA NOTED
--- NOTE | 2018-07-25 08:34 | Progress Note ---
DATE: July 25, 2018 Mr. Tse is a 73-year-old man with a history of left nephrectomy, hypertension, diabetes, status post recent biopsies of the prostate came to the emergency room complaining of rectal pain. He was found to have an abscess on the prostate. He was started on IV antibiotics. Urology consult was requested. Patient went for prostatectomy yesterday. PHYSICAL EXAMINATION GENERAL: Today, he is awake. He is alert. VITALS: Temperature is 97.6, blood pressure 119/65. HEART: Regular rate. LUNGS: Clear to auscultation. ABDOMEN: Soft. BLOOD WORK: White count is 7.13, hemoglobin 11.5. Potassium is 4.2, creatinine is 0.99, glucose 139. The abdominal and pelvic CT done on admission showed prostate with 2.2 ovoid collection. ASSESSMENT AND PLAN 1. BPH with urinary outlet obstruction. 2. Hypertension. 3. Hyperlipidemia. 4. Hypothyroidism. 5. Probable prostate abscess. PLAN: At the present time, the patient underwent surgery yesterday. He is on antibiotics, Colace and blood pressure medications. Once he gets cleared by urologist, he is going to be able to go home and follow up with his PCP. All of this was discussed with the patient. All questions were answered to satisfaction. Job#: [id number] HARRY
[2018-07-25] MEDS: LISINOPRIL 20 MG TAB PO SCH (08:54)
[2018-07-25] MEDS: HYDROCHLOROTHIAZIDE 25 MG TAB PO SCH (08:54)
[2018-07-25] MEDS: FINASTERIDE 5 MG TAB PO SCH (08:54)
[2018-07-25] MEDS: DOCUSATE SODIUM 100 MG CAP PO SCH ×2 (08:54→17:00)
[2018-07-25] MEDS: TAMSULOSIN HCL 0.4 MG CAP PO SCH ×2 (08:55→17:00)
[2018-07-25] MEDS: FERROUS SULFATE 325 MG TAB PO SCH ×3 (08:55→22:15)
--- NOTE | 2018-07-25 16:29 | NUR ---
MET W PT REGARDING IMM LETTER. CALL WAS PLACE TO HIS SON, DAMIEN. EXPLAINED THE PURPOSE OF THE LETTER. PT. SIGNED. COPY TO PT AND COPY TO CHART.
--- NOTE | 2018-07-25 18:18 | NUR ---
dr romero here orders written,pt denies pain ,baker to bsd light hematuria noted
--- NOTE | 2018-07-25 19:20 | NUR ---
PATIENT SITTING UP IN BED WATCHING TV. NO S/S OF DISTRESS. CBI PATENT WITH LIGHT RED DRAINAGE. DENIES PAIN AT THIS TIME. CALL LIGHT WITHIN REACH AND INSTRUCTED TO CALL FOR ASSISTANCE. PATIENT VERBALIZED UNDERSTANDING.
[2018-07-25] MEDS: AMLODIPINE BESYLATE 5 MG TAB PO SCH (21:00)
[2018-07-25] MEDS: FAMOTIDINE 20 MG TAB PO SCH (22:15)
[2018-07-25] MEDS: SIMVASTATIN 20 MG TAB PO SCH (22:15)
--- NOTE | 2018-07-25 22:15 | NUR ---
EMPTIED 1800CC OF RED DRAINAGE FROM CBI. NO CLOTS. C/O MINIMAL PAIN OF 3/10 SCALE. CBI INTACT AND PATENT.
[2018-07-26] VITALS (7 sets, daily range): BP systolic 98–125; BP diastolic 56–61
--- NOTE | 2018-07-26 00:15 | NUR ---
EMPTIED 1100 CC OF LIGHT RED URINE. D/C IRRIGATION. PATIENT DENIES PAIN OR PRESSURE AT THIS TIME.
--- NOTE | 2018-07-26 06:11 | NUR ---
D/C HELLER WITH TIP STILL INTACT. WITHDREW 22CC OF N/S. MINIMAL BLEEDING NOTED. NO COMPLAINTS.
[2018-07-26] MEDS: LEVOTHYROXINE SODIUM 88 MCG TAB PO SCH (06:15)
--- NOTE | 2018-07-26 07:35 | NUR ---
pt in bed sleeping ,no s/s discomfort.
--- NOTE | 2018-07-26 08:15 | NUR ---
pt up to bathroom voided without difficulty.
[2018-07-26] MEDS: DOCUSATE SODIUM 100 MG CAP PO SCH ×2 (08:23→17:00)
[2018-07-26] MEDS: HYDROCHLOROTHIAZIDE 25 MG TAB PO SCH (08:23)
[2018-07-26] MEDS: TAMSULOSIN HCL 0.4 MG CAP PO SCH ×2 (08:24→17:00)
[2018-07-26] MEDS: LISINOPRIL 20 MG TAB PO SCH (08:24)
[2018-07-26] MEDS: FERROUS SULFATE 325 MG TAB PO SCH ×3 (08:24→20:47)
[2018-07-26] MEDS: FINASTERIDE 5 MG TAB PO SCH (08:25)
--- NOTE | 2018-07-26 16:10 | NUR ---
DR SU HERE OK TO DC IN AM.
--- NOTE | 2018-07-26 17:20 | NUR ---
PT UP IN BED NO DISTRESS NOTED,DENIES PAIN.
--- NOTE | 2018-07-26 19:00 | NUR ---
patient recieved awake, alert, lying quietly in bed. no c/o pain noted. pm assessment complete. patient instructed to call for assistance when needed.
[2018-07-26] MEDS: FAMOTIDINE 20 MG TAB PO SCH (20:47)
[2018-07-26] MEDS: SIMVASTATIN 20 MG TAB PO SCH (20:47)
[2018-07-26] MEDS: AMLODIPINE BESYLATE 5 MG TAB PO SCH (20:47)
[2018-07-27] VITALS: BP 98/56
[2018-07-27 04:00] VITALS: BP 107/55
[2018-07-27] MEDS: LEVOTHYROXINE SODIUM 88 MCG TAB PO SCH (05:15)
[2018-07-27 07:25] VITALS: BP 121/69
--- NOTE | 2018-07-27 07:25 | NUR ---
PT UP IN BED NO DISTRESS NOTED,DENIES PAIN.
[2018-07-27 08:00] VITALS: BP 121/69
[2018-07-27] MEDS: FERROUS SULFATE 325 MG TAB PO SCH (08:15)
[2018-07-27] MEDS: TAMSULOSIN HCL 0.4 MG CAP PO SCH (08:15)
[2018-07-27] MEDS: FINASTERIDE 5 MG TAB PO SCH (08:15)
[2018-07-27] MEDS: DOCUSATE SODIUM 100 MG CAP PO SCH (08:15)
[2018-07-27] MEDS: HYDROCHLOROTHIAZIDE 25 MG TAB PO SCH (08:15)
[2018-07-27] MEDS: LISINOPRIL 20 MG TAB PO SCH (08:54)
--- NOTE | 2018-07-27 11:00 | NUR ---
PT DISCHARGED HOME IV DCD WITHOUT REDNESS OR SWELLING,PRESCRIPTIONS AND INSTRUCTIONS GIVEN COPY ON CHART
--- NOTE | 2018-08-20 16:51 | Operative Report ---
DATE OF PROCEDURE: 07/24/2018 SURGEON: Galileo Yung MD PREOPERATIVE DIAGNOSIS: Chronic prostatitis with possible prostatic abscess. POSTOPERATIVE DIAGNOSIS: Chronic prostatitis with possible prostatic abscess. PROCEDURES PERFORMED: 1. Cystoscopy. 2. Transurethral resection of prostate. ANESTHESIA: General anesthesia. ESTIMATED BLOOD LOSS: Minimal. INDICATIONS: Mr. Ant Tse is a 73-year-old gentleman, who previously underwent radical nephrectomy for renal cell cancer, who recently presented with rectal pain that was unrelenting despite medical therapy. Recent CAT scan revealed a prostatic abscess. He now presents for surgical management of this problem. PROCEDURE IN DETAIL: The patient was brought into the operating room, placed in the supine position. After administration of general anesthesia, he was placed in dorsal lithotomy position and prepped and draped in usual sterile fashion. Cystourethroscopy was performed using 21-Serbian cystoscope. The anterior and posterior urethra were noted to be normal. The prostate revealed evidence of trilobar hyperplasia with moderate elevation at the median bar. The bladder was entered with mild difficulty. Upon entry into the bladder, the ureteral orifices were difficult to visualize due to the median lobe. There were grade 2-3 trabeculations noted throughout with cellules and tics seen throughout the bladder. There were no other mucosal lesions identified. The bladder was left full and the cystoscope and the sheath were removed. A 26-Serbian resectoscope sheath was then placed in a retrograde fashion and the NativeX resectoscope was used to perform the procedure. Beginning at the 1 o'clock position and proceeding in a clockwise fashion down to the 5 o'clock position, all the adenomatous tissue between the bladder neck and the veru was resected down to the level of the surgical capsule. There was no gross penetration or perforation of the capsule noted. There was moderate purulent drainage noted from that side. Hemostasis was obtained using electrocautery device. A similar procedure was performed on the contralateral side in a counterclockwise fashion, beginning at the 11 o'clock position and ending at the 7 o'clock. Again, purulent drainage was noted. Again, hemostasis was obtained using electrocautery device. The residual tissue on the roof and floor of the gland were then resected and the Ellik evacuator was used to remove all chips. Once adequate hemostasis was obtained, the bladder was left full and the resectoscope and the sheath were removed. The patient was noted to have brisk urinary flow with Crede. A 24-Serbian 3-way Coude catheter was then placed in a retrograde fashion and the balloon inflated with 45 mL of sterile water. The urinary efflux was noted to be blood tinged. The patient was started on continuous bladder irrigation and he was returned to supine position. Anesthesia was reversed and he was transferred to a bed and taken to the postanesthesia care unit in good condition. Of note, the needle and instrument counts were correct at the conclusion of the case. MD AMAIRANI Sterling/MODL /[id number]
== END 2018-07-27 10:56 | disposition home or self-care (01) | DRG 713 ==
LOC: ER 08:13 → OBSVTOIN 15:34 → ERHOLD 15:34 → MED/SURG3 16:52
PROVIDERS: ADMIT Internal Medicine; ATTEND Internal Medicine
PROC: 0VB08ZZ Excision of Prostate, Via Natural or Artificial Opening Endoscopic (ICD-10-PCS; principal; 2018-07-24 12:15)
DX: N41.2 Abscess of prostate (principal); N13.8 Other obstructive and reflux uropathy; E11.65 Type 2 diabetes mellitus with hyperglycemia; I10 Essential (primary) hypertension; D63.8 Anemia in other chronic diseases classified elsewhere; Z90.5 Acquired absence of kidney; Z85.528 Personal history of other malignant neoplasm of kidney; E03.9 Hypothyroidism, unspecified; N41.1 Chronic prostatitis; N40.1 Benign prostatic hyperplasia with lower urinary tract symptoms
CPT/HCPCS: 36415; 74177; 80053; 81001; 85025; 87040; 87086; 88305; 99284; J1100; J1956; J2001; J2405; J7030; Q9967